=== PATIENT | male | born 1955 | race Caucasian/White ===

== ENCOUNTER 2018-06-21 11:31 | Emergency (ER) | payer BC ==
[~2018-06-21] VITALS: Ht 180.3 cm; Wt 107.0 kg
[2018-06-21 11:38] VITALS: BP_SYST 129
--- NOTE | 2018-06-21 11:41 | NUR ---
Patient to ER bed 3 to gown for evaluation. Side rails up. Report given to Zaira MENDEZ.
--- NOTE | 2018-06-21 11:42 | NUR ---
Pt brought by partner,A&Ox4, pt presents to ER with dizziness and nausea worsening with movement, pt skin pink and warm, cap refill <3, VSS, intact ROM, respirations even and unlabored. Pt denies medical history, will continue to monitor.
--- NOTE | 2018-06-21 11:57 | NUR ---
Dr Miles at bedside examining patient.
--- NOTE | 2018-06-21 12:00 | NUR ---
Note undone in EDM - 06/21/18 at 1843 by [email or web address] Patient given written and verbal discharge instructions and verbalizes understanding. ER discussed with patient the results and treatment provided. Patient in stable condition. ID arm band removed. IV catheter removed intact and dressing applied, no active bleeding. No Rx given. Patient educated on pain management and to follow up with PMD. Pain Scale 0/10. Opportunity for questions provided and answered. Medication side effect fact sheet provided.
--- NOTE | 2018-06-21 12:00 | NUR ---
Miguel A west in ED - 06/21/18 at 1842 by [email or web address] RT took patient to RD. patient is stable.
--- NOTE | 2018-06-21 12:00 | NUR ---
patient in stable condition, sent to RD.
[2018-06-21] MEDS ORDERED: MECLIZINE HCL 25 MG TABLET (ANITVERT) PO ONE (12:15)
[2018-06-21] MEDS ORDERED: NACL 0.9% 1,000 ML IV ONE ×2 (12:15→15:00)
[2018-06-21] MEDS ORDERED: ONDANSETRON HCL 4 MG/2 ML VIAL IVP ONE (12:15)
[2018-06-21 12:29] LABS: BASOPHILS # (AUTO) 0.1 K/uL (0.0-0.2); BASOPHILS % (AUTO) 0.5 % (0.0-2.0); EOSINOPHILS % (AUTO) 0.3 % (0.0-4.0); HEMATOCRIT 50.4 % (36-54); HEMOGLOBIN 16.7 g/dL (14.0-18.0); LYMPHOCYTES # (AUTO) 1.8 K/uL (1.0-5.5); LYMPHOCYTES % (AUTO) 17.2 % (20.5-51.5); MEAN CORPUSCULAR HEMOGLOBIN 30 pg (27-31); MEAN CORPUSCULAR HGB CONC 33 % (32-36); MEAN CORPUSCULAR VOLUME 90 fL (79.0-98.0); MONOCYTES # (AUTO) 0.4 K/uL (0.0-1.0); NEUTROPHILS # (AUTO) 8.3 K/uL (1.8-7.7); PLATELET COUNT (AUTO) 269 K/uL (130-430); RED BLOOD CELL COUNT(AUTO) 5.63 MIL/uL (4.2-6.2); RED CELL DISTRIBUTION WIDTH 12.4 % (9.0-15.0); WHITE BLOOD COUNT (AUTO) 10.6 K/uL (4.8-10.8)
--- NOTE | 2018-06-21 12:30 | NUR ---
patient returned from RD. will continue to monitor
[2018-06-21 12:41] LABS: ANION GAP 13 (5-15); CALCIUM 9.4 mg/dL (8.4-11.0); CHLORIDE 102 mmol/L (98-107); GLUCOSE 164 mg/dL (70-99); POTASSIUM 4.3 mmol/L (3.5-5.1); SODIUM SERUM 139 mmol/L (136-145); UREA NITROGEN, BLOOD 15 mg/dL (8-21)
[2018-06-21 12:46] LABS: GFR AFRICAN AMERICAN 97 mL/min (>90)
[2018-06-21 12:50] LABS: ALANINE AMINOTRANSFERASE 39 U/L (12-78); ALBUMIN 3.7 g/dL (3.4-4.8); ASPARTATE AMINOTRANSFERASE 23 U/L (10-37); TOTAL BILIRUBIN 0.5 mg/dL (0.0-1.0)
--- NOTE | 2018-06-21 13:32 | NUR ---
patient resting w/o signs of distress or discomfort. patients is at bedside.
--- NOTE | 2018-06-21 14:00 | NUR ---
urine collected and sent to lab. patient states, "I feel better already."
[2018-06-21] MEDS ORDERED: LORazepam 1 MG TABLET PO ONE (15:00)
--- NOTE | 2018-06-21 15:00 | NUR ---
ER at bedside examining patient.
--- NOTE | 2018-06-21 16:00 | NUR ---
patient given some food, tolerated well without n/v.
[2018-06-21 18:47] VITALS: BP_SYST 118
[2018-06-21 19:43] LABS: BILIRUBIN,URINE NEGATIVE (NEGATIVE); BLOOD, URINE NEGATIVE (NEGATIVE); CLARITY/URINE CLEAR (CLEAR); COLOR,URINE YELLOW (YELLOW); GLUCOSE,URINE NEGATIVE (NEGATIVE); KETONES,URINE 1+ (NEGATIVE); LEUKOCYTE ESTERASE ,URINE NEGATIVE (NEGATIVE); NITRITE, URINE NEGATIVE (NEGATIVE); PROTEIN URINE NEGATIVE (NEGATIVE); UROBILINOGEN,URINE 0.2 (0.2-1.0)
== END 2018-06-21 18:30 | disposition home or self-care (01) ==
LOC: SED 11:31
DX: E86.0 Dehydration (principal); R03.0 Elevated blood-pressure reading, without diagnosis of hypertension
CPT/HCPCS: 36415; 70450; 71045; 80053; 81003; 83874; 84484; 85025; 93005; 96361; 96374; 99284; J2405; J7030; J8597